=== PATIENT | male | born 1940 | race Caucasian/White ===

== ENCOUNTER 2020-01-19 07:27 | Day surgery (SDC) | payer OTHER, BC ==
[2020-01-17 13:28] VITALS: BMI 27.6
[2020-01-19] MEDS ORDERED: LIDOCAINE HCL/PF 2% SDV 5ML VIAL ONE (07:57)
[2020-01-19] MEDS ORDERED: PROPOFOL 20 ML ONE ×3 (07:57)
[2020-01-19 08:49] VITALS: TEMP 98.2
[2020-01-19 10:01] VITALS: PULSE 50
[2020-01-19 10:03] VITALS: BP 110/57
--- NOTE | 2020-01-21 19:21 | PATH ---
Surgical Pathology Report Patient Name: BLAZE URIARTE [facility]. Rec. #: [id number] /Age/Gender: 1940 (Age: 79) / M Account: [id number] Location: [facility] Taken: 01/19/2020 Received: 01/19/2020 Reported: 01/21/2020 Physicians: Nile Childers M.D. Specimen(s) Received A: SECOND PORTION DUODENUM B: GASTRIC ANTRUM C: PROXIMAL LEFT COLON D: POLYP PROXIMAL SIGMOID COLON Clinical History GERD, history polyps Postoperative diagnosis: Gastritis, distal esophagitis, diverticulosis, colon polyps Final Diagnosis A. DUODENUM, SECOND PORTION, BIOPSY: DUODENAL MUCOSA WITHOUT SIGNIFICANT PATHOLOGIC FINDINGS. B. GASTRIC ANTRUM, BIOPSY: GASTRIC ANTRAL MUCOSA WITH MILD CHRONIC GASTRITIS. IMMUNOHISTOCHEMICAL STAIN FOR H. PYLORI IS NEGATIVE. C. PROXIMAL COLON, LEFT, HOT SNARE POLYPECTOMY: TUBULAR ADENOMA. D. PROXIMAL SIGMOID COLON, POLYP, BIOPSY: TUBULAR ADENOMA. Positive and negative controls (internal if applicable) show appropriate results. Electronically Signed Loan [place] M.D. Gross Description A. Received in formalin, labeled "second portion duodenum" are 2 najera, irregular portions of soft tissue measuring 0.2 and 0.3 cm. in greatest dimension. The specimens are submitted in toto in one cassette. B. Received in formalin, labeled "gastric antrum" are 2 najera, irregular portions of soft tissue measuring 0.3 and 0.5 cm. in greatest dimension. The specimens are submitted in toto in one cassette. C. Received in formalin, labeled "proximal left colon" is a najera, irregular portion of soft tissue measuring 0.6 cm. in greatest dimension. The specimen is bisected and entirely submitted in toto in one cassette. D. Received in formalin, labeled "polyp proximal sigmoid colon" is a najera, irregular portion of soft tissue measuring 0.2 cm. in greatest dimension. The specimen is submitted in toto in one cassette. MLSZ/01/20/2020 sanml/01/20/2020
== END 2020-01-19 09:40 | disposition home or self-care (01) ==
LOC: FASU-ENDO 07:27
PROVIDERS: ATTEND Internal Medicine Gastroenterology
PROC: 0DBN8ZX Excision of Sigmoid Colon, Via Natural or Artificial Opening Endoscopic, Diagnostic (ICD-10-PCS; 2020-01-19)
PROC: 0DB98ZX Excision of Duodenum, Via Natural or Artificial Opening Endoscopic, Diagnostic (ICD-10-PCS; 2020-01-19)
PROC: 0DB68ZX Excision of Stomach, Via Natural or Artificial Opening Endoscopic, Diagnostic (ICD-10-PCS; 2020-01-19)
PROC: 0DBM8ZX Excision of Descending Colon, Via Natural or Artificial Opening Endoscopic, Diagnostic (ICD-10-PCS; principal; 2020-01-19 08:17)
DX: Z86.010 Personal history of colon polyps (principal); D12.4 Benign neoplasm of descending colon; D12.5 Benign neoplasm of sigmoid colon; K57.30 Diverticulosis of large intestine without perforation or abscess without bleeding; K20.9 Esophagitis, unspecified; K29.50 Unspecified chronic gastritis without bleeding; R12 Heartburn
CPT/HCPCS: 88305-TC; 88342-TC